=== PATIENT | female | born 1945 | race Caucasian/White ===

== ENCOUNTER 2022-05-20 10:15 | Emergency (ER) | payer MEDICARE ==
--- NOTE | 2022-05-20 10:45 | ED ---
General Adult HPI - General Chief complaint: Shortness of Breath Stated complaint: SOB Time Seen by Provider: 05/20/22 10:20 Source: patient, RN notes reviewed, old records reviewed Mode of arrival: ambulatory Limitations: no limitations - History of Present Illness Initial comments: This is a 77-year-old female who presents emergency Department complaining of difficulty breathing. Patient states it started about a month ago. Patient states they did travel from [place] the [place] about 3 weeks ago. Patient denies any fever chills or cough. Patient states she's had open-heart surgery and had a valve replaced but she's never diagnosed congestive heart failure. Patient states she's never diagnosed with atrial fibrillation and she has no hi story of COPD that she knows of. Patient denies any palpitations today. Patient denies chest pain. Patient denies lightheadedness or dizziness. Patient denies headache patient denies numbness weakness. Patient denies abdominal pain patient denies nausea vomiting diarrhea. Patient states the sw elling in her legs is a little worse than normal little bit more so on the left than the right - Related Data Home Medications Medication Instructions Recorded Confirmed Ascorbic Acid [Vitamin C] 500 mg PO DAILY 05/20/22 05/20/22 Cholecalciferol [Vitamin D3 (25 25 mcg PO DAILY 05/20/22 05/20/22 Mcg = 1000 Iu)] Clopidogrel [Plavix] 75 mg PO DAILY 05/20/22 05/20/22 Cyanocobalamin (Vitamin B-12) 1,000 mcg PO DAILY 05/20/22 05/20/22 [Vitamin B-12] Furosemide [Lasix] 40 mg PO DAILY PRN 05/20/22 05/20/22 Insulin Glargine,Hum.rec.anlog 75 units SQ BID 05/20/22 05/20/22 [Lantus Solostar Pen] Lidocaine 5% Patch [Lidoderm] 1 patch TOPICAL DAILY PRN 05/20/22 05/20/22 Magnesium Oxide [Mag-Ox] 400 mg PO DAILY 05/20/22 05/20/22 Metoprolol Succinate [Metoprolol 25 mg PO BID 05/20/22 05/20/22 Succinate ER] Potassium Chloride ER [K-Dur 20] 20 meq PO DAILY PRN 05/20/22 05/20/22 Turmeric Root Extract [Turmeric] 500 mg PO DAILY 05/20/22 05/20/22 Vitamin E 400 unit PO DAILY 05/20/22 05/20/22 Allergies Allergy/AdvReac Type Severity Reaction Status Date / Time aspirin Allergy Rash/Hives Verified 05/20/22 12:14 Penicillins Allergy Rash/Hives Verified 05/20/22 12:14 propoxyphene [From Darvon] Allergy Rash/Hives Verified 05/20/22 12:14 Review of Systems ROS Statement: Those systems with pertinent positive or pertinent negative responses have been documented in the HPI. ROS Other: All systems not noted in ROS Statement are negative. Past Medical History Past Medical History: Coronary Artery Disease (CAD), Diabetes Mellitus, Hyperlipidemia, Hypertension History of Any Multi-Drug Resistant Organisms: None Reported Past Surgical History: Coronary Bypass/CABG, Heart Catheterization With Stent Additional Past Surgical History / Comment(s): Cardiac stent Smoking Status: Never smoker Past Alcohol Use History: None Reported Past Drug Use History: None Reported General Exam - General Exam Comments Initial Comments: GENERAL: Patient is well-developed and well-nourished. Patient is nontoxic and well- hydrated and is in mild distress. ENT: Neck is soft and supple. No significant lymphadenopathy is noted. Oropharynx is clear. Moist mucous membranes. Neck has full range of motion without eliciting any pain. EYES: The sclera were anicteric and conjunctiva were pink and moist. Extraocular movements were intact and pupils were equal round and reactive to light. Eyelids were unremarkable. PULMONARY: Unlabored respirations. Good breath sounds bilaterally. No audible rales rhonchi or wheezing was noted. CARDIOVASCULAR: There is a regular rate and rhythm without any murmurs gallops or rubs. ABDOMEN: Soft and nontender with normal bowel sounds. SKIN: Skin is clear with no lesions or rashes and otherwise unremarkable. NEUROLOGIC: Patient is alert and oriented x3. Cranial nerves II through XII are grossly intact. Motor and sensory are also intact. Normal speech, volume and content. Symmetrical smile. MUSCULOSKELETAL: Normal extremities with adequate strength and full range of motion. 1+ edema in the ankles bilaterally LYMPHATICS: No significant lymphadenopathy is noted PSYCHIATRIC: Normal psychiatric evaluation. Limitations: no limitations Course Vital Signs 05/20/22 05/20/22 05/20/22 10:20 10:26 10:43 Temperature 98.1 F 98.8 F Pulse Rate 100 97 Respiratory 24 16 16 Rate Blood Pressure 151/78 134/76 O2 Sat by Pulse 97 98 Oximetry Medical Decision Making - Medical Decision Making EKG shows sinus tachycardia at 102 bpm [place] interval is on a 91 QRS is 114 QT inte rval 359 QTC is 418. Patient's EKG shows no ST segment elevation or depression. Chest x-ray shows no acute abnormality. BMP showed no elevation. Even though patient's d-dimer was normal she just had a long trip and since the long trip she has been short of breath thought the probability pulmonary embolism still exists is a CAT scan to her chest. CT of the chest showed no acute abnormality - Lab Data Result diagrams: 05/20/22 10:55 05/20/22 10:55 Lab Results 05/20/22 05/20/22 05/20/22 Range/Units 10:55 10:55 10:55 WBC 9.1 (3.8-10.6) k/uL RBC 4.56 (3.80-5.40) m/uL Hgb 13.7 (11.4-16.0) gm/dL Hct 41.9 (34.0-46.0) % MCV 91.9 (80.0-100.0) fL MCH 30.2 (25.0-35.0) pg MCHC 32.8 (31.0-37.0) g/dL RDW 13.8 (11.5-15.5) % Plt Count 273 (150-450) k/uL MPV 7.6 Neutrophils % 62 % Lymphocytes % 27 % Monocytes % 5 % Eosinophils % 3 % Basophils % 1 % Neutrophils # 5.6 (1.3-7.7) k/uL Lymphocytes # 2.5 (1.0-4.8) k/uL Monocytes # 0.4 (0-1.0) k/uL Eosinophils # 0.3 (0-0.7) k/uL Basophils # 0.1 (0-0.2) k/uL PT 10.5 (9.0-12.0) sec INR 1.0 (<1.2) APTT 24.6 (22.0-30.0) sec D-Dimer 0.59 (<0.60) mg/L FEU Sodium 138 (137-145) mmol/L Potassium 4.5 (3.5-5.1) mmol/L Chloride 103 (98-107) mmol/L Carbon Dioxide 28 (22-30) mmol/L Anion Gap 7 mmol/L BUN 19 H (7-17) mg/dL Creatinine 0.97 (0.52-1.04) mg/dL Est GFR (CKD-EPI)AfAm 65 (>60 ml/min/1.73 sqM) Est GFR (CKD-EPI)NonAf 56 (>60 ml/min/1.73 sqM) Glucose 231 H (74-99) mg/dL Lactic Ac Sepsis Rflx Plasma Lactic Acid Flip (0.7-2.0) mmol/L Calcium 9.6 (8.4-10.2) mg/dL Magnesium 1.9 (1.6-2.3) mg/dL Total Bilirubin 0.6 (0.2-1.3) mg/dL AST 31 (14-36) U/L ALT 23 (4-34) U/L Alkaline Phosphatase 115 (38-126) U/L Troponin I (0.000-0.034) ng/mL NT-Pro-B Natriuret Pep pg/mL Total Protein 7.4 (6.3-8.2) g/dL Albumin 4.5 (3.5-5.0) g/dL 05/20/22 05/20/22 05/20/22 Range/Units 10:55 10:55 10:55 WBC (3.8-10.6) k/uL RBC (3.80-5.40) m/uL Hgb (11.4-16.0) gm/dL Hct (34.0-46.0) % MCV (80.0-100.0) fL MCH (25.0-35.0) pg MCHC (31.0-37.0) g/dL RDW (11.5-15.5) % Plt Count (150-450) k/uL MPV Neutrophils % % Lymphocytes % % Monocytes % % Eosinophils % % Basophils % % Neutrophils # (1.3-7.7) k/uL Lymphocytes # (1.0-4.8) k/uL Monocytes # (0-1.0) k/uL Eosinophils # (0-0.7) k/uL Basophils # (0-0.2) k/uL PT (9.0-12.0) sec INR (<1.2) APTT (22.0-30.0) sec D-Dimer (<0.60) mg/L FEU Sodium (137-145) mmol/L Potassium (3.5-5.1) mmol/L Chloride (98-107) mmol/L Carbon Dioxide (22-30) mmol/L Anion Gap mmol/L BUN (7-17) mg/dL Creatinine (0.52-1.04) mg/dL Est GFR (CKD-EPI)AfAm (>60 ml/min/1.73 sqM) Est GFR (CKD-EPI)NonAf (>60 ml/min/1.73 sqM) Glucose (74-99) mg/dL Lactic Ac Sepsis Rflx Plasma Lactic Acid Flip 2.1 H* (0.7-2.0) mmol/L Calcium (8.4-10.2) mg/dL Magnesium (1.6-2.3) mg/dL Total Bilirubin (0.2-1.3) mg/dL AST (14-36) U/L ALT (4-34) U/L Alkaline Phosphatase (38-126) U/L Troponin I <0.012 (0.000-0.034) ng/mL NT-Pro-B Natriuret Pep 227 pg/mL Total Protein (6.3-8.2) g/dL Albumin (3.5-5.0) g/dL 05/20/22 Range/Units 11:18 WBC (3.8-10.6) k/uL RBC (3.80-5.40) m/uL Hgb (11.4-16.0) gm/dL Hct (34.0-46.0) % MCV (80.0-100.0) fL MCH (25.0-35.0) pg MCHC (31.0-37.0) g/dL RDW (11.5-15.5) % Plt Count (150-450) k/uL MPV Neutrophils % % Lymphocytes % % Monocytes % % Eosinophils % % Basophils % % Neutrophils # (1.3-7.7) k/uL Lymphocytes # (1.0-4.8) k/uL Monocytes # (0-1.0) k/uL Eosinophils # (0-0.7) k/uL Basophils # (0-0.2) k/uL PT (9.0-12.0) sec INR (<1.2) APTT (22.0-30.0) sec D-Dimer (<0.60) mg/L FEU Sodium (137-145) mmol/L Potassium (3.5-5.1) mmol/L Chloride (98-107) mmol/L Carbon Dioxide (22-30) mmol/L Anion Gap mmol/L BUN (7-17) mg/dL Creatinine (0.52-1.04) mg/dL Est GFR (CKD-EPI)AfAm (>60 ml/min/1.73 sqM) Est GFR (CKD-EPI)NonAf (>60 ml/min/1.73 sqM) Glucose (74-99) mg/dL Lactic Ac Sepsis Rflx Y Plasma Lactic Acid Flip (0.7-2.0) mmol/L Calcium (8.4-10.2) mg/dL Magnesium (1.6-2.3) mg/dL Total Bilirubin (0.2-1.3) mg/dL AST (14-36) U/L ALT (4-34) U/L Alkaline Phosphatase (38-126) U/L Troponin I (0.000-0.034) ng/mL NT-Pro-B Natriuret Pep pg/mL Total Protein (6.3-8.2) g/dL Albumin (3.5-5.0) g/dL Disposition Clinical Impression: Dyspnea Disposition: HOME SELF-CARE Instructions (If sedation given, give patient instructions): Dyspnea (ED) Is patient prescribed a controlled substance at d/c from ED?: No Referrals: Zhen Hernandez DO [Doctor of Osteopathic Medicine] - 1-2 days Time of Disposition: 13:21
[2022-05-20 11:06] LABS: Basophils # (A) 0.1 k/uL (0-0.2); Basophils % (A) 1 %; Eosinophils # (A) 0.3 k/uL (0-0.7); Eosinophils % (A) 3 %; HCT 41.9 % (34.0-46.0); HGB 13.7 gm/dL (11.4-16.0); Lymphocytes # (A) 2.5 k/uL (1.0-4.8); Lymphocytes % (A) 27 %; MCH 30.2 pg (25.0-35.0); MCHC 32.8 g/dL (31.0-37.0); MCV 91.9 fL (80.0-100.0); Mean Platelet Volume 7.6; Monocytes # (A) 0.4 k/uL (0-1.0); Monocytes % (A) 5 %; Neutrophils # (A) 5.6 k/uL (1.3-7.7); Neutrophils % (A) 62 %; Platelet Count 273 k/uL (150-450); RBC 4.56 m/uL (3.80-5.40); RDW 13.8 % (11.5-15.5); WBC 9.1 k/uL (3.8-10.6)
[2022-05-20 11:17] LABS: Albumin 4.5 g/dL (3.5-5.0); Calcium 9.6 mg/dL (8.4-10.2); Magnesium 1.9 mg/dL (1.6-2.3); Potassium 4.5 mmol/L (3.5-5.1); Total Bilirubin 0.6 mg/dL (0.2-1.3); Total Protein 7.4 g/dL (6.3-8.2)
[2022-05-20 11:24] VITALS: PULSE 97; TEMP 98.8
--- NOTE | 2022-05-20 11:26 | XR ---
EXAMINATION TYPE: XR chest 2V DATE OF EXAM: 05/20/2022 COMPARISON: NONE HISTORY: Altered breathing for over a month TECHNIQUE: Frontal and lateral views of the chest are obtained. FINDINGS: There is no focal air space opacity, pleural effusion, or pneumothorax seen. Bandlike area of increased attenuation in the left mid lung likely reflects atelectasis versus scarring. There are coronary artery calcifications. The cardiac silhouette size is within normal limits. Patient is post median sternotomy. Aorta is dense. There are overlying leads. Postop changes are noted to the right shoulder. There is thoracic spondylosis. The osseous structures are intact. IMPRESSION: No acute cardiopulmonary process.
[2022-05-20 11:35] LABS: Partial Thromboplastin Time 24.6 sec (22.0-30.0); Prothrombin Time 10.5 sec (9.0-12.0)
[2022-05-20] MEDS ORDERED: SODIUM CHLORIDE 0.9% 500 ML 500 ML IV ONE (11:42)
--- NOTE | 2022-05-20 12:45 | CT ---
EXAMINATION TYPE: CT chest angio for PE CT DLP: 734.4 mGycm, Automated exposure control for dose reduction was used. DATE OF EXAM: 05/20/2022 12:34 PM COMPARISON: Chest radiograph same day. CLINICAL INDICATION:Female, 77 years old with history of Dyspnea; TECHNIQUE/CONTRAST: CTA scan of the thorax is performed with IV Contrast, patient injected with 74ml mL of Isovue 370, pu lmonary embolism protocol. MIP images are created and reviewed. FINDINGS: Pulmonary Artery: There is no evidence for a filling defect within the pulmonary vasculature to sugge st acute pulmonary embolism. The pulmonary artery is of normal size. Lungs/Pleura: No evidence of focal consolidation, pleural effusion or pneumothorax. Streaky atelectas is seen scattered throughout the lungs. Thickening of interlobular septa. Airway: Large airways are patent. Heart: The heart is mildly enlarged for size. Moderate coronary artery atherosclerosis. Vasculature: No evidence of aortic aneurysm. Atherosclerosis of the arterial vasculature. Mediastinum: No gross evidence of adenopathy. Sternotomy wires are present. Multilevel disc degenerat ion changes are present. Musculoskeletal: No acute osseous abnormalities Soft Tissues: Unremarkable. Lower neck: No significant findings. Upper Abdomen: No significant findings. IMPRESSION: 1. No evidence of pulmonary embolism. 2. Mild cardiomegaly, pulmonary vascular congestion suggestive of congestive heart failure. 3. Moderate coronary artery atherosclerosis.
[2022-05-20] MEDS ORDERED: LORazepam 1 MG TAB PO STA (13:28)
[2022-05-20 13:35] VITALS: BP 132/84; RESP 18
== END 2022-05-20 13:41 | disposition home or self-care (01) ==
LOC: EC 10:15
DX: R06.00 Dyspnea, unspecified (principal); I10 Essential (primary) hypertension; I25.10 Atherosclerotic heart disease of native coronary artery without angina pectoris; E11.9 Type 2 diabetes mellitus without complications; E78.5 Hyperlipidemia, unspecified; Z95.1 Presence of aortocoronary bypass graft; Z88.6 Allergy status to analgesic agent; Z88.0 Allergy status to penicillin; Z88.5 Allergy status to narcotic agent; Z79.899 Other long term (current) drug therapy; Z79.4 Long term (current) use of insulin
CPT/HCPCS: 96361; 96360; 99285; 36415; 93005; 85379; 83880; 80053; 83605; 83735; 84484; 85025; 85610; 85730; 71046; 71275; Q9967